=== PATIENT | female | born 1985 | race Hispanic/Latino ===

== ENCOUNTER 2020-12-08 15:53 | Day surgery (SDC) | payer OTHER ==
[2020-12-08] MEDS ORDERED: hydrALAZINE 20 MG/ML VIAL SLOW IVP PRN (17:17)
[2020-12-08 18:31] LABS: #Eosinphils 0.3 10x3/uL (0.0-0.5); #Monocytes 0.6 10x3/uL (0.0-1.1); #Neutrophils 7.2 10x3/uL (1.5-8.4); %Basophils 0.3 % (0.0-2.0); %Eosinophils 2.5 % (0.0-6.0); %Lymphocytes 20.6 % (18.0-47.0); %Monocytes 5.9 % (0.0-10.0); Hemoglobin 12.9 g/dL (12.0-15.5); Mean Corpuscular HGB CONC 33.9 g/dL (32.0-36.0); Mean Corpuscular Hemoglobin 28.5 pg (27.0-33.0); Mean Corpuscular Volume 83.9 fl (81.6-98.3); Mean Platelet Volume 11.6 fl (7.4-10.4); Platelet Count 170 10x3/uL (150-450); RBC Distribution Width 13.9 % (11.5-14.5); Red Blood Cell (RBC) Count 4.53 10x6/uL (3.90-5.03); White Blood Cell (WBC) Count 10.2 10x3/uL (3.5-10.5)
[2020-12-08 18:45] LABS: ALT (SGPT) 19 U/L (8-55); AST (SGOT) 19 U/L (5-34); Albumin 3.3 g/dL (3.5-5.0); Alkaline Phosphatase 141 U/L (40-110); Anion Gap 15 mmol/L (10-20); BUN (Urea Nitrogen) 9 mg/dL (7.0-18.7); Bilirubin, Total 0.2 mg/dL (0.2-1.2); Calc. Creatinine Clearance 0 mL/min (70-130); Calcium 8.8 mg/dL (7.8-10.44); Carbon Dioxide 20 mmol/L (22-29); Chloride 106 mmol/L (98-107); Glucose 119 mg/dL (70-105); Potassium 3.5 mmol/L (3.5-5.1); Protein, Total 6.3 g/dL (6.0-8.3); Sodium 137 mmol/L (136-145)
[2020-12-08 20:18] LABS: Creatinine, Urine 175.44 mg/dL (47-110)
== END 2020-12-08 20:56 | disposition home or self-care (01) ==
LOC: CSHLD/OP 15:53
PROVIDERS: ATTEND Obstetrics & Gynecology
DX: O16.3 Unspecified maternal hypertension, third trimester (principal); O99.891 Other specified diseases and conditions complicating pregnancy; R51.9 Headache, unspecified; R20.0 Anesthesia of skin; O12.03 Gestational edema, third trimester; Z3A.36 36 weeks gestation of pregnancy; O09.523 Supervision of elderly multigravida, third trimester
CPT/HCPCS: 36415; 80053; 82570; 84156; 85025; 99284

== ENCOUNTER 2020-12-18 08:29 | Day surgery (SDC) | payer OTHER ==
[2020-12-18] MEDS ORDERED: hydrALAZINE 20 MG/ML VIAL SLOW IVP PRN (10:27)
[2020-12-18 10:41] LABS: Bilirubin Neg (Negative); Blood, Urine Negative (Negative); Clarity Clear (Clear); Glucose, Urine (Dipstick) Normal (Negative); Ketone, Urine Negative (Negative); Leukocyte Negative (Negative); Nitrite Negative (Negative); Protein, Urine (Dipstick) Negative (Neg-Trace); Urobilinogen Normal mg/dL (Less than 2)
[2020-12-18 10:43] LABS: Urine Culture Reflex No No
[2020-12-18 10:49] LABS: Bacteria/HPF None Seen HPF (None Seen); RBC/HPF 0-3 HPF (0-3); Squamous Epithelial 0-3 HPF (0-3); WBC/HPF 0-3 HPF (0-3)
== END 2020-12-18 13:05 | disposition home or self-care (01) ==
LOC: CSHLD/OP 08:29
PROVIDERS: ATTEND Obstetrics & Gynecology
DX: O36.8130 Decreased fetal movements, third trimester, not applicable or unspecified (principal); O99.891 Other specified diseases and conditions complicating pregnancy; N89.8 Other specified noninflammatory disorders of vagina; O09.523 Supervision of elderly multigravida, third trimester; Z3A.38 38 weeks gestation of pregnancy; Z79.82 Long term (current) use of aspirin
CPT/HCPCS: 81001; 87480; 87510; 87660; 99285

== ENCOUNTER 2020-12-22 13:50 | Outpatient (CLI) | payer OTHER ==
[2020-12-23 06:51] LABS: SARS-CoV-2 PCR by NAA Not Detected (NotDetected)
== END 2020-12-22 13:51 | disposition home or self-care (01) ==
LOC: CSHLAB 13:50
PROVIDERS: ATTEND Family Medicine
DX: Z20.822 Contact with and (suspected) exposure to COVID-19 (principal)
CPT/HCPCS: 87635; U0003; U0005

== ENCOUNTER 2020-12-24 19:00 | Inpatient (IN) | payer MEDICAID, OTHER, SELFPAY ==
[2020-12-24 23:28] VITALS: BMI 32.1
[2020-12-25] MEDS: Lactated Ringer's 1,000 ML IV SCH ×2 (00:10→08:40)
[2020-12-25] MEDS ORDERED: Ondansetron PF 4 MG/2 ML Vial IVP PRN ×2 (00:22→11:58)
[2020-12-25] MEDS ORDERED: Butorphanol Tartrate 1 MG/ML VIAL SLOW IVP PRN (00:22)
[2020-12-25] MEDS ORDERED: Diphenoxylate HCl/Atropine Tablet PO PRN ×2 (00:22)
[2020-12-25] MEDS ORDERED: hydrALAZINE 20 MG/ML VIAL SLOW IVP PRN ×2 (00:22→11:58)
[2020-12-25] MEDS ORDERED: Misoprostol 200 MCG TAB PR PRN (00:22)
[2020-12-25] MEDS ORDERED: Lidocaine 1% (PF) 30 ML VIAL SC PRN (00:22)
[2020-12-25] MEDS ORDERED: Promethazine HCl 25 MG/ML VIAL IM PRN (00:22)
[2020-12-25] MEDS ORDERED: Carboprost 250 MCG/ML AMP IM PRN (00:22)
[2020-12-25] MEDS ORDERED: Ibuprofen 800 MG TAB PO PRN (00:22)
[2020-12-25] MEDS ORDERED: Acetaminophen 500 MG TAB PO PRN (00:22)
[2020-12-25] MEDS ORDERED: NS w/ Oxytocin 30 units 500 ML IV PRN (00:38)
[2020-12-25] MEDS: Misoprostol 100 MCG TAB VAG SCH ×2 (00:46→18:26)
[2020-12-25 00:47] LABS: Hemoglobin 13.2 g/dL (12.0-15.5); Mean Corpuscular Volume 82.2 fl (81.6-98.3); Mean Platelet Volume 12.3 fl (7.4-10.4); Platelet Count 172 10x3/uL (150-450); Red Blood Cell (RBC) Count 4.72 10x6/uL (3.90-5.03); White Blood Cell (WBC) Count 8.8 10x3/uL (3.5-10.5)
[2020-12-25 00:57] LABS: ALT (SGPT) 15 U/L (8-55); AST (SGOT) 23 U/L (5-34); Albumin 3.5 g/dL (3.5-5.0); Alkaline Phosphatase 166 U/L (40-110); Anion Gap 16 mmol/L (10-20); BUN (Urea Nitrogen) 11 mg/dL (7.0-18.7); Bilirubin, Total 0.3 mg/dL (0.2-1.2); Calc. Creatinine Clearance 159 mL/min (70-130); Calcium 8.9 mg/dL (7.8-10.44); Carbon Dioxide 18 mmol/L (22-29); Chloride 106 mmol/L (98-107); Globulin 3.1 g/dL (2.4-3.5); Glucose 99 mg/dL (70-105); Potassium 3.4 mmol/L (3.5-5.1); Protein, Total 6.6 g/dL (6.0-8.3); Sodium 137 mmol/L (136-145)
[2020-12-25 01:18] LABS: Hep B Surf Ag Non-Reactive S/CO (NonReactive); Syphilis Antibody Nonreactive (Nonreactive); Syphilis Antibody Index 0.02 S/CO (<1.00 Non-Reactive)
[2020-12-25 01:29] LABS: HBSAg Index 0.16 S/CO (0-0.99)
[2020-12-25] MEDS ORDERED: NS w/ Oxytocin 30 units 500 ML IVPB SCH ×2 (09:00)
[2020-12-25] MEDS ORDERED: Preparation H Ointment 28 GM TUBE PR PRN (11:58)
[2020-12-25] MEDS ORDERED: Lanolin Ointment 7 GM TUBE TOP PRN (11:58)
[2020-12-25] MEDS ORDERED: Milk Of Magnesia 30 ML UDCUP PO PRN (11:58)
[2020-12-25] MEDS ORDERED: Bisacodyl 10 MG SUPP PR PRN (11:58)
[2020-12-25] MEDS ORDERED: Benzocaine-Menthol 82.5 ML CAN TOP PRN (11:58)
[2020-12-25] MEDS ORDERED: diphenhydrAMINE 25 MG CAP PO PRN (11:58)
[2020-12-25] MEDS ORDERED: Fentanyl 100 MCG/2 ML VIAL ONE (12:01)
[2020-12-25] MEDS ORDERED: Ibuprofen 800 MG TAB PO SCH (12:30)
[2020-12-25 12:50] LABS: Notified Whom: L & D; RapidComm Collect By CBN
[2020-12-25 12:55] LABS: Notified Whom: L & D; RapidComm Collect By CBN
[2020-12-25] MEDS: Ferrous Sulfate 325 MG TAB PO SCH (18:26)
[2020-12-25] MEDS: Docusate Calcium (SURFAK) 240 MG CAP PO SCH (21:08)
[2020-12-25] MEDS: Ibuprofen 800 MG TAB PO SCH (21:08)
[2020-12-26] MEDS: Ibuprofen 800 MG TAB PO SCH ×2 (05:37→13:32)
[2020-12-26 07:18] LABS: Hemoglobin 13.5 g/dL (12.0-15.5); Mean Corpuscular HGB CONC 32.9 g/dL (32.0-36.0); Mean Corpuscular Hemoglobin 28.2 pg (27.0-33.0); Mean Corpuscular Volume 85.6 fl (81.6-98.3); Mean Platelet Volume 12.5 fl (7.4-10.4); Platelet Count 172 10x3/uL (150-450); RBC Distribution Width 14.3 % (11.5-14.5); Red Blood Cell (RBC) Count 4.79 10x6/uL (3.90-5.03); White Blood Cell (WBC) Count 11.3 10x3/uL (3.5-10.5)
[2020-12-26] MEDS ORDERED: Prenatal Vitamin 1 TAB PO SCH (09:00)
[2020-12-26] MEDS: Docusate Calcium (SURFAK) 240 MG CAP PO SCH (09:17)
[2020-12-26] MEDS: Ferrous Sulfate 325 MG TAB PO SCH (09:18)
[2020-12-26 12:52] VITALS: BP 110/62; TEMP 97.9
== END 2020-12-26 15:45 | disposition home or self-care (01) | DRG 807 ==
LOC: CSHLD 23:10 → CSHPP 12-25 14:57
PROVIDERS: ADMIT Family Medicine; ATTEND Family Medicine
PROC: 10D07Z6 Extraction of Products of Conception, Vacuum, Via Natural or Artificial Opening (ICD-10-PCS; principal; 2020-12-25)
PROC: 10907ZC Drainage of Amniotic Fluid, Therapeutic from Products of Conception, Via Natural or Artificial Opening (ICD-10-PCS; 2020-12-25)
PROC: 0W8NXZZ Division of Female Perineum, External Approach (ICD-10-PCS; 2020-12-25)
PROC: 3E0P7VZ Introduction of Hormone into Female Reproductive, Via Natural or Artificial Opening (ICD-10-PCS; 2020-12-25)
PROC: 3E033VJ Introduction of Other Hormone into Peripheral Vein, Percutaneous Approach (ICD-10-PCS; 2020-12-25)
DX: O13.4 Gestational [pregnancy-induced] hypertension without significant proteinuria, complicating childbirth (principal); Z37.0 Single live birth; Z3A.39 39 weeks gestation of pregnancy; Z20.822 Contact with and (suspected) exposure to COVID-19; O76 Abnormality in fetal heart rate and rhythm complicating labor and delivery; O70.1 Second degree perineal laceration during delivery
CPT/HCPCS: 36415; 80053; 82805; 85027; 86780; 86850; 86900; 86901; 87340; 88307; J2590; J3010